=== PATIENT | male | born 1980 | race Caucasian/White ===

== ENCOUNTER 2021-08-07 18:45 | Emergency (ER) | payer SELFPAY ==
--- NOTE | 2021-08-07 19:21 | EDM.PDOC ---
<Martín Palencia - Last Filed: 08/07/21 20:45> ED HPI GENERAL MEDICAL PROBLEM - General Chief Complaint: Respiratory Problem Stated Complaint: THINKS HE HAS COVID IN VEHICLE Time Seen by Provider: 08/07/21 19:20 - Related Data Allergies Allergy/AdvReac Type Severity Reaction Status Date / Time No Known Allergies Allergy Verified 10/06/16 05:54 [facility] [employer] Home Meds: Home Meds Cytamel 0.5 mcg PO DAILY 08/07/21 [History] Levothyroxine 200 mcg PO DAILY 08/07/21 [History] Testosterone 1.5 ml INJECT ASDIRECTED 08/07/21 [History] dexAMETHasone [Decadron] 6 mg PO BID #10 tablet 08/07/21 [Rx] Departure - Departure Disposition: Home, Self-Care 01 Clinical Impression: COVID-19 determined by clinical diagnostic criteria - Discharge Information Prescriptions: dexAMETHasone [Decadron] 6 mg PO BID #10 tablet Instructions: COVID-19, Things to Know about the COVID-19 Pandemic - [facility] (02/03/2021), 10 Things You Can Do to Manage Your COVID-19 Symptoms at Home - [facility] (05/20/2020), COVID-19: How to Protect Yourself and Others - [facility], COVID-19: Quarantine vs. Isolation - [facility] (11/05/2020), COVID-19 Frequently Asked Questions Referrals: PCP,None [Primary Care Provider] - Forms: ED Department Discharge, ED Return to Work/School Form Additional Instructions: Evaluation in the emergency room today in regards to signs and symptoms of COVID-19 illness with nasal congestion sore throat fever chills and intermittent paroxysmal nonproductive cough. Decreased appetite with no diarrhea or vomiting. Lab tests confirm that you do have COVID-19 illness. By history symptoms started about a week ago. This would mean you should be self quarantining or isolating yourself from others to prevent spread of this virus for the next 5 days. Your oxygen levels are 97 to 99% in the emergency room and your chest x-ray was negative for any signs of pneumonia which means you are working your way through this illness likely without any serious illness to develop. The worst days of the illness are usually day 8-11. Continue Motrin 600 mg every 6 hours or Tylenol 650 mg every 4 hours for fever, body ache and headache relief. Suggest use of dexamethasone prescription steroid 1 tablet of 6 mg strength twice daily with breakfast and supper for the next 5 days which will help reduce inflammation. Of course return to the ED if you become incre asingly short of breath over the next 3 to 5 days. <Ian Steinberg - Last Filed: 08/08/21 00:52> ED HPI GENERAL MEDICAL PROBLEM - General Source of Information: Reports: Patient History Limitations: Reports: No Limitations - History of Present Illness INITIAL COMMENTS - FREE TEXT/NARRATIVE: 41-year-old male presents to the ED with sore throat for the better part of a week nasal congestion and paroxysmal minimally productive cough. Associated fever and chills for the last 4 days. He feels the fever is getting less. He took Tylenol about 2 hours ago. He can still eat and has no vomiting. States his sense of taste and smell is altered. Feels a little weak and with fatigue. Onset: Gradual Onset Date: 07/31/21 (Symptoms of fever chills nasal congestion and mild sore throat started about a week ago.) Duration: Day(s):, Constant, Getting Worse Location: Reports: Chest (Intermittent paroxysmal nonproductive cough) Quality: Reports: Ache Severity: Moderate (Generalized myalgia) Improves with: Reports: Medication (Tylenol and Motrin helped somewhat with the pain and fever) Worsens with: Reports: Other Context: Denies: Activity, Exercise, Lifting, Sick Contact, Trauma, Other Associated Symptoms: Reports: Cough, Fever/Chills, Headaches, Malaise, Weakness (With fatigue). Denies: No Other Symptoms, Confusion, Chest Pain, cough w sputum, Diaphoresis, Loss of Appetite (Mildly loss of appetite), Nausea/Vomiting, Rash, Seizure, Shortness of Breath, Syncope Treatments [employer]: Reports: NSAIDS (Motrin), Other (see below) Other Treatments [employer]: inhalers Throat Pain Score (Numeric/FACES): 4 Past Medical History Musculoskeletal History: Reports: Other (See Below) (Intermittent low back pain) Endocrine/Metabolic History: Reports: Hypothyroidism (He has been on thyroid replacement hormone including T3 supplementation with Cytomel for 20 years), Other (See Below) (Hypergonadism. Takes testosterone enanthate injections every 2 weeks) Social & Family History - Living Situation & Occupation Living situation: Reports: Single Occupation: Employed ED ROS GENERAL - Review of Systems Review Of Systems: See Below Constitutional: Reports: Fever, Chills, Malaise, Weakness, Fatigue, Decreased Appetite HEENT: Reports: Rhinitis (Sinus congestion with postnasal drip), Throat Pain (Sore throat for the better part of a week) Respiratory: Reports: Shortness of Breath, Cough. Denies: Wheezing, Pleuritic Chest Pain (Mild), Sputum, Hemoptysis (Nonproductive cough), Other Cardiovascular: Reports: Blood Pressure Problem, Dyspnea on Exertion Endocrine: Reports: Fatigue GI/Abdominal: Reports: Decreased Appetite (Mildly decreased appetite). Denies: Diarrhea, Nausea, Vomiting : Reports: No Symptoms Musculoskeletal: Reports: Muscle Pain (Mild generalized myalgia particularly neck low back and thigh muscles) Neurological: Reports: Headache, Weakness. Denies: Confusion, Dizziness, Numbness (Occasional mild headache), Syncope, Tingling, Tremors, Trouble Speaking, Difficulty Walking, Change in Speech, Gait Disturbance Psychiatric: Reports: No Symptoms Hematologic/Lymphatic: Reports: No Symptoms Immunologic: Reports: No Symptoms ED EXAM, GENERAL - Physical Exam Exam: See Below Exam Limited By: No Limitations General Appearance: Alert, WD/WN, No Apparent Distress, Other (Temperature is 36.1 although he feels warmer than that. Heart rate is 81 and sinus respiratory is 20 with O2 sats of 97 to 99% room air. BP is elevated at 182 113. Patient is not known to have hypertension.) Eye Exam: Bilateral Eye: Normal Inspection (No blepharal pallor or scleral icterus), PERRL Ears: Other (Patient has abnormal left tympanic membrane likely from previous surgery. It appears to contain fluid which appears purulent.) Throat/Mouth: Normal Lips, Other (Throat is mildly diffusely erythematous with slight swelling of the uvula from coughing.) Head: Atraumatic, Normocephalic Neck: Normal Inspection, Supple, Non-Tender, Full Range of Motion. No: Lymphadenopathy (L), Lymphadenopathy (R) Respiratory/Chest: No Respiratory Distress, Lungs Clear, Normal Breath Sounds, No Accessory Muscle Use Cardiovascular: Normal Peripheral Pulses, Regular Rate, Rhythm, No Edema, No Gallop, No Murmur, No Rub Peripheral Pulses: 3+: Carotid (L), Carotid (R), Posterior Tibial (L), Posterior Tibial (R), Dorsalis Pedis (L), Dorsalis Pedis (R) GI/Abdominal: Normal Bowel Sounds, Soft, Non-Tender, No Organomegaly, No Abnormal Bruit, No Mass, Pelvis Stable, Other (Has had bilateral inguinal herniorrhaphies) Back Exam: Normal Inspection, Full Range of Motion. No: CVA Tenderness (L), CVA Tenderness (R) Extremities: Normal Inspection, Normal Range of Motion, Non-Tender, No Pedal Edema, Other (He is aware of some tender axillary adenopathy bilaterally.) Neurological: Alert, Oriented, CN II-XII Intact, Normal Cognition Psychiatric: Normal Affect, Normal Mood Skin Exam: Warm, Dry, Intact, Normal Color, No Rash Lymphatic: Adenopathy (Both axillas the largest gland is 1 cm in size mobile and mildly tender) #1 Interpretation EKG Date: 08/07/21 Time: 19:56 Rhythm: NSR Rate (Beats/Min): 76 Soledad: LAD-Left Soledad Deviation (-43 degrees) P-Wave: Enlarged (Consider left atrial hypertrophy) QRS: Other (There is an incomplete right bundle branch block pattern and a left anterior fascicular block pattern. Tall R wave in lead I suggest left ventricular hypertrophy pattern) ST-T: Other (Mild diffuse early repolarization pattern) QT: Normal EKG Interpretation Comments: Abnormal ECG Course - Vital Signs Last Recorded V/S: Last Vital Signs Temp 36.1 C 08/07/21 19:11 Pulse 81 08/07/21 19:11 Resp 20 08/07/21 19:11 BP 182/113 H 08/07/21 19:11 Pulse Ox 96 08/07/21 19:11 - Orders/Labs/Meds Orders: Active Orders 24 hr Category Date Time Status Chest 1V Frontal [CR] Stat Exams 08/07/21 19:37 Taken Peripheral IV Insertion Adult [OM.PC] Stat Oth 08/07/21 19:38 Ordered Labs: Laboratory Tests 08/07/21 08/07/21 08/07/21 Range/Units 19:04 19:53 19:53 WBC 5.26 (4.23-9.07) K/mm3 RBC 6.19 H (4.63-6.08) M/mm3 Hgb 18.3 H (13.7-17.5) gm/dl Hct 54.5 H (40.1-51.0) % MCV 88.0 (79.0-92.2) fl MCH 29.6 (25.7-32.2) pg MCHC 33.6 (32.2-35.5) g/dl RDW Std Deviation 46.1 H (35.1-43.9) fL Plt Count 211 (163-337) K/mm3 MPV 8.3 L (9.4-12.3) fl Neut % (Auto) 51.6 (34.0-67.9) % Lymph % (Auto) 32.1 (21.8-53.1) % Gilchrist % (Auto) 12.4 H (5.3-12.2) % Eos % (Auto) 2.9 (0.8-7.0) Baso % (Auto) 0.8 (0.1-1.2) % Neut # (Auto) 2.72 (1.78-5.38) K/mm3 Lymph # (Auto) 1.69 (1.32-3.57) K/mm3 Gilchrist # (Auto) 0.65 (0.30-0.82) K/mm3 Eos # (Auto) 0.15 (0.04-0.54) K/mm3 Baso # (Auto) 0.04 (0.01-0.08) K/mm3 Sodium 142 (136-145) mEq/L Potassium 3.9 (3.5-5.1) mEq/L Chloride 108 H (98-107) mEq/L Carbon Dioxide 29 (21-32) mEq/L Anion Gap 8.9 (5-15) BUN 9 (7-18) mg/dL Creatinine 1.0 (0.7-1.3) mg/dL Est Cr Clr Drug Dosing 98.19 mL/min Estimated GFR (MDRD) > 60 (>60) mL/min BUN/Creatinine Ratio 9.0 L (14-18) Glucose 123 H (70-99) mg/dL Calcium 8.7 (8.5-10.1) mg/dL Magnesium 2.1 (1.8-2.4) mg/dL Total Bilirubin 0.5 (0.2-1.0) mg/dL AST 40 H (15-37) U/L ALT 88 H (16-63) U/L Alkaline Phosphatase 69 (46-116) U/L Lactate Dehydrogenase 193 (85-227) U/L Troponin I < 0.017 (0.00-0.056) ng/mL C-Reactive Protein <0.2 (<1.0) mg/dL Total Protein 7.2 (6.4-8.2) g/dl Albumin 3.9 (3.4-5.0) g/dl Globulin 3.3 gm/dL Albumin/Globulin Ratio 1.2 (1-2) SARS-CoV-2 RNA (KAREN) Positive H (NEGATIVE) Meds: Medications Discontinued Medications Generic Name Dose Route Start Last Admin Trade Name Freq PRN Reason Stop Dose Admin Acetaminophen 975 mg 08/07/21 20:40 08/07/21 20:45 Acetaminophen 325 Mg Tab PO 08/07/21 20:41 975 mg NOW ONE Administration Sodium Chloride 10 ml 08/07/21 19:38 Sodium Chloride 0.9% 10 Ml Syringe FLUSH ASDIRECTED PRN Keep Vein Open - Radiology Interpretation Free Text/Narrative:: 41-year-old male presents to the ED for evaluation of sore throat for the better part of a week associate with nasal congestion and altered sense of taste and smell. Mild nonproductive cough. Appetite remains fair with no diarrhea or vomiting. Fever and chills. He has signs and symptoms of COVID-19 illness starting about a week ago. Plan Covid screen. Chest x-ray. Routine labs to be done. - Re-Assessments/Exams Free Text/Narrative Re-Assessment/Exam: 08/07/21 20:15 chest x-ray reveals poor inspirational view. Cardiac silhouette and mediastinum are within normal limits. No pulmonary infiltrates appreciated. 08/07/21 20:33 White count is 5.26 with the auto differential showing 51.6% neutrophils. Hemoglobin is elevated at 18.3 with hematocrit of 54.5 indicating significant hemoconcentration. Platelet counts 211,000. Sodium 142 with a potassium of 3.9 chloride 108 with a bicarb of 29. Anion gap is 8.9 with a BUN of 9. Creatinine is 1.0 with a GFR greater than 60. Glucose is 123. Calcium is 8.7. Magnesium is 2.1. Bilirubin is 0.5 AST mildly elevated at 40 and ALT elevated at 88. Alkaline phosphatase is 69. LDH is 193. Troponin I was less than 0.017 C-reactive protein is less than 0.2 COVID-19 screen is positive 08/07/21: 20:50: I have discussed the findings of positive COVID-19 as he suspected. He was advised that he is still contagious to others for at least another 5 to 7 days note given to excuse him from work until August 11. At present his oxygen levels are 97 to 99% on room air and his chest x-ray does not show any signs of pneumonia. I am going to place him on dexamethasone 6 mg twice daily for 5 days in the hopes of reducing inflammation and preventing hospitalization. At this time we are out of monoclonal antibody therapy. Patient return if he is not feeling markedly improved or condition worsens over the next 72 hours. Departure - Departure Time of Disposition: 20:48 Condition: Fair - Discharge Information *PRESCRIPTION DRUG MONITORING PROGRAM REVIEWED*: Not Applicable *COPY OF PRESCRIPTION DRUG MONITORING REPORT IN PATIENT PERICO: Not Applicable Sepsis Event Note (ED) - Focused Exam Vital Signs: Vital Signs Temp Pulse Resp BP Pulse Ox 08/07/21 19:11 36.1 C 81 20 182/113 H 96 - My Orders Last 24 Hours: My Active Orders 08/07/21 19:37 Chest 1V Frontal [CR] Stat 08/07/21 19:38 Peripheral IV Insertion Adult [OM.PC] Stat - Assessment/Plan Last 24 Hours: My Active Orders 08/07/21 19:37 Chest 1V Frontal [CR] Stat 08/07/21 19:38 Peripheral IV Insertion Adult [OM.PC] Stat
[2021-08-07] MEDS ORDERED: Sodium Chloride 0.9% 10 ML Syringe FLUSH PRN (19:38)
[2021-08-07] MEDS ORDERED: Acetaminophen 325 MG Tab PO ONE (20:40)
--- NOTE | 2021-08-08 16:38 | CR ---
Chest: Portable view of the chest was obtained. Comparison: No prior chest imaging is available. Heart size and mediastinum are normal. Lungs are clear with no acute parenchymal change. No acute osseous abnormality is appreciated. Impression: 1. Nothing acute is seen on portable chest x-ray. Diagnostic code #1
== END 2021-08-07 20:57 | disposition home or self-care (01) ==
LOC: JD.ED 18:45
DX: U07.1 COVID-19 (principal); E03.9 Hypothyroidism, unspecified; Z79.899 Other long term (current) drug therapy
CPT/HCPCS: 36415; 71045; 80053; 83615; 83735; 84484; 85025; 86140; 87635; 93005; 99284; A9270; 93010; U0002